=== PATIENT | male | born 1955 | race Caucasian/White ===

== ENCOUNTER 2021-09-22 19:28 | Inpatient (IN) | payer MEDICARE, OTHER ==
[~2021-09-22] VITALS: Ht 177.8 cm; Wt 115.0 kg
[~2021-09-22 19:28] MED LIST: ALLEGRA ALLERG180 MG PO; ALLOPURINOL100 MG PO; ASPIRIN EC81 MG PO; BENICAR40 MG PO; CO Q10200 MG PO; ELIQUIS5 MG PO; ISOSORBIDE MONO60 MG PO; LOPRESSOR50 MG PO; NITROQUIK SL0.4 MG SL; RANITIDINE HCL300 MG PO; VENLAFAXINE HCL75 MG PO
[2021-09-22 20:09] LABS: BASOPHIL 0.3 % (0-2); EOSINOPHIL 0.3 % (0-7); HGB 16.4 g/dl (13.2-18.0); LYMPHOCYTE 5.9 % (15-48); MCH 30.8 pg (25.0-31.0); MCHC 33.5 g/dL (32.0-36.0); MCV 92.1 fL (78.0-100.0); MONOCYTE 0.7 % (0-12); MPV 9.5 fL (6.0-9.5); NEUTROPHIL 92.1 % (41-80); NRBC 0; PLT 147 K/uL (150-400); RBC 5.32 M/uL (4.70-6.00); RDW 14.3 % (11.5-14.0); WBC 5.8 K/uL (4.0-10.5)
[2021-09-22 20:44] LABS: BILIRUBIN NEGATIVE (NEGATIVE); BLOOD 3+ Ery/uL (NEGATIVE); CLARITY CLEAR (CLEAR); COLOR YELLOW (YELLOW); GLUCOSE (U) NORMAL (NORMAL); LEUKOCYTES 3+ Leu/uL (NEGATIVE); NITRITE NEGATIVE (NEGATIVE); PROTEIN 1+ mg/dL (NEGATIVE); SPECIFIC GRAVITY 1.025 (1.001-1.030)
[2021-09-22 20:45] LABS: CORONAVIRUS 2019 SARS-COV-2 NEGATIVE (NEGATIVE); INFLUENZA A NAA NEGATIVE (NEGATIVE)
[2021-09-22 20:51] LABS: BUN/CREAT RATIO (CALC) 19.8 RATIO; CREATININE 0.96 mg/dL (0.67-1.17)
[2021-09-22 20:51] LABS: BACTERIA 3+; URINARY RBC TNTC; URINARY WBC TNTC
[2021-09-23 00:06] LABS: LACTIC ACID 1.7 mmol/L (0.4-1.9)
[2021-09-23 10:19] LABS: MAGNESIUM 2.1 mg/dL (1.8-2.4); POTASSIUM 3.6 mmol/L (3.5-5.1)
[2021-09-24 06:46] LABS: BASOPHIL 0.1 % (0-2); EOSINOPHIL 0.7 % (0-7); HGB 13.2 g/dl (13.2-18.0); LYMPHOCYTE 22.2 % (15-48); MCH 31.1 pg (25.0-31.0); MCV 94.3 fL (78.0-100.0); MONOCYTE 11.1 % (0-12); MPV 9.8 fL (6.0-9.5); NEUTROPHIL 65.3 % (41-80); NRBC 0; PLT 153 K/uL (150-400); RBC 4.24 M/uL (4.70-6.00); RDW 14.7 % (11.5-14.0); WBC 6.9 K/uL (4.0-10.5)
[2021-09-24 07:14] LABS: BUN/CREAT RATIO (CALC) 18.4 RATIO; CREATININE 0.87 mg/dL (0.67-1.17); POTASSIUM 3.9 mmol/L (3.5-5.1)
[2021-09-25 06:29] LABS: BASOPHIL 0.2 % (0-2); EOSINOPHIL 2.3 % (0-7); HCT 40.9 % (42.0-52.0); HGB 13.6 g/dl (13.2-18.0); LYMPHOCYTE 23.6 % (15-48); MCH 30.8 pg (25.0-31.0); MCHC 33.3 g/dL (32.0-36.0); MCV 92.7 fL (78.0-100.0); MONOCYTE 11.1 % (0-12); MPV 9.5 fL (6.0-9.5); NEUTROPHIL 62.3 % (41-80); NRBC 0; PLT 148 K/uL (150-400); RBC 4.41 M/uL (4.70-6.00); RDW 14.5 % (11.5-14.0); WBC 6.5 K/uL (4.0-10.5)
[2021-09-25 06:42] LABS: BUN/CREAT RATIO (CALC) 14.3 RATIO; CREATININE 0.84 mg/dL (0.67-1.17); POTASSIUM 3.8 mmol/L (3.5-5.1)
[2021-09-25] MEDS ORDERED: MACROBID100 MG PO (09:13)
[2021-09-25] MEDS ORDERED: ELIQUIS5 MG PO (09:32)
--- NOTE | 2021-09-25 13:33 | NUR ---
DISCUSSED DISCHARGE INSTRUCTIONS WITH PATIENT. IV REMOVED. PATIENT IN STABLE CONDITION. D/C HOME WITH
== END 2021-09-25 12:31 | disposition home or self-care (01) | DRG 871 ==
LOC: FER 19:28 → FMS 23:40
PROVIDERS: Emergency Medicine Emergency Medical Services; Hospitalist; Nurse Practitioner; ADMIT Family Medicine
DX: A41.9 Sepsis, unspecified organism (principal); J96.01 Acute respiratory failure with hypoxia; N30.00 Acute cystitis without hematuria; G93.49 Other encephalopathy; I10 Essential (primary) hypertension; J45.909 Unspecified asthma, uncomplicated; Z20.822 Contact with and (suspected) exposure to COVID-19; E87.6 Hypokalemia; I25.10 Atherosclerotic heart disease of native coronary artery without angina pectoris; E78.5 Hyperlipidemia, unspecified; G47.33 Obstructive sleep apnea (adult) (pediatric); I48.0 Paroxysmal atrial fibrillation; M10.9 Gout, unspecified; F41.9 Anxiety disorder, unspecified; K21.9 Gastro-esophageal reflux disease without esophagitis; E66.9 Obesity, unspecified; Z96.642 Presence of left artificial hip joint; Z86.010 Personal history of colon polyps; Z95.5 Presence of coronary angioplasty implant and graft; Z90.49 Acquired absence of other specified parts of digestive tract; Z98.890 Other specified postprocedural states; Z68.36 Body mass index [BMI] 36.0-36.9, adult; Z98.41 Cataract extraction status, right eye; Z98.42 Cataract extraction status, left eye
CPT/HCPCS: 36415; 36600; 71045; 71275; 80048; 81001; 82803; 83605; 83735; 84132; 84145; 84484; 85025; 85379; 87040; 87088; 93005; 94010; 97162; 97165; J0696; J1650; J1885; J2405; J7030; Q9967; U0002

== ENCOUNTER → 2022-01-22 | Day surgery (SDC) | payer MEDICARE, OTHER ==
[~2022-01-22] VITALS: Ht 177.8 cm; Wt 113.6 kg
[~2022-01-22] MED LIST changes: +MACROBID100 MG PO
[2022-01-22 07:49] LABS: HCT 53.8 % (42.0-52.0); HGB 18.1 g/dl (13.2-18.0); MCH 32.1 pg (25.0-31.0); MCHC 33.6 g/dL (32.0-36.0); MCV 95.4 fL (78.0-100.0); MPV 9.1 fL (6.0-9.5); RBC 5.64 M/uL (4.70-6.00); RDW 14.1 % (11.5-14.0); WBC 11.3 K/uL (4.0-10.5)
[2022-01-22 08:04] LABS: ALBUMIN 3.7 g/dL (3.4-5.0); BILIRUBIN - TOTAL 0.8 mg/dL (0.2-1.0); BUN/CREAT RATIO (CALC) 17.9 RATIO; CREATININE 0.84 mg/dL (0.67-1.17); GLOBULIN (CALCULATION) 4.2 g/dL; POTASSIUM 4.1 mmol/L (3.5-5.1); TOTAL PROTEIN 7.9 g/dL (6.4-8.2)
== END | disposition home or self-care (01) ==
LOC: FAS 07:17
PROVIDERS: Surgery
DX: Z12.11 Encounter for screening for malignant neoplasm of colon (principal); D12.3 Benign neoplasm of transverse colon; K57.30 Diverticulosis of large intestine without perforation or abscess without bleeding; I48.91 Unspecified atrial fibrillation; Z80.0 Family history of malignant neoplasm of digestive organs; Z86.010 Personal history of colon polyps; Z79.82 Long term (current) use of aspirin
CPT/HCPCS: 36415; 80053; J1610; J2250; J2704; J7120